=== PATIENT | male | born 1985 | race Caucasian/White ===

== ENCOUNTER 2018-06-13 19:40 | Emergency (ER) | payer MEDICAID ==
[~2018-06-13] VITALS: Ht 177.8 cm; Wt 104.5 kg
[2018-06-13] MEDS ORDERED: IBUPROFEN 800 MG TABLET PO ONE (21:30)
[2018-06-13] MEDS ORDERED: SILVER SULFADIAZINE 1% 25 GM CREAM TP ONE (21:30)
[2018-06-13 22:15] VITALS: BP 137/75
== END 2018-06-13 22:30 | disposition home or self-care (01) ==
LOC: EMS 19:42
DX: T23.102A Burn of first degree of left hand, unspecified site, initial encounter (principal); F31.9 Bipolar disorder, unspecified; F17.210 Nicotine dependence, cigarettes, uncomplicated; Z88.8 Allergy status to other drugs, medicaments and biological substances; X10.1XXA Contact with hot food, initial encounter; Y93.89 Activity, other specified; Y92.89 Other specified places as the place of occurrence of the external cause; Y99.8 Other external cause status
CPT/HCPCS: 16000; 99284; 99406; Z7610

== ENCOUNTER 2018-06-17 17:04 | Emergency (ER) | payer MEDICAID ==
[~2018-06-17] VITALS: Ht 177.8 cm; Wt 103.6 kg
[2018-06-17 20:06] VITALS: BP 122/71
== END 2018-06-17 20:45 | disposition home or self-care (01) ==
LOC: EMS 17:04
DX: T23.262D Burn of second degree of back of left hand, subsequent encounter (principal); F31.9 Bipolar disorder, unspecified; F17.210 Nicotine dependence, cigarettes, uncomplicated; X08.8XXD Exposure to other specified smoke, fire and flames, subsequent encounter
CPT/HCPCS: 99281